=== PATIENT | female | born 2000 | race Caucasian/White ===

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

== ENCOUNTER 2022-06-09 15:40 | Emergency (ER) | payer OTHER ==
[2022-06-09] MEDS ORDERED: Ondansetron 4 MG Tab.DIS PO ONE (15:55)
== END 2022-06-09 17:54 | disposition home or self-care (01) ==
LOC: JD.ED 15:40
DX: T40.411A Poisoning by fentanyl or fentanyl analogs, accidental (unintentional), initial encounter (principal); Z72.0 Tobacco use
CPT/HCPCS: 99284; A9270

== ENCOUNTER 2022-08-29 19:25 | Emergency (ER) | payer OTHER ==
[2022-08-29] MEDS ORDERED: Diphtheria,Pertussis(Acell),Tetanus Vaccine 0.5 ML Syringe IM ONE (20:22)
[2022-08-29] MEDS ORDERED: Amoxicillin/Clavulanate K 875-125 MG Tab PO ONE (20:23)
== END 2022-08-29 20:58 | disposition home or self-care (01) ==
LOC: JD.ED 19:25
DX: S01.551A Open bite of lip, initial encounter (principal); Z79.899 Other long term (current) drug therapy; Z23 Encounter for immunization; W54.0XXA Bitten by dog, initial encounter
CPT/HCPCS: 90471; 90715; 99283; A9270; 12011

== ENCOUNTER 2025-05-22 07:30 | Day surgery (SDC) | payer MEDICAID ==
[~2025-05-22 07:30] MED LIST: Sodium Chloride 0.9% 10 ML Syringe FLUSH PRN; Sodium Chloride 0.9% 10 ML Syringe FLUSH SCH
[2025-05-22] MEDS ORDERED: propofoL 500 MG/50 ML 50 ML ONE (07:51)
[2025-05-22] MEDS ORDERED: Midazolam 1 MG/ML 2 ML SDV ONE (07:52)
[2025-05-22] MEDS ORDERED: fentaNYL 100 MCG/2 ML SDV ONE (07:52)
[2025-05-22] MEDS: Lactated Ringers 1,000 ML IV SCH (08:05)
[2025-05-22 08:11] LABS: BASOPHILS ABSOLUTE AUTO 0.1 K/mm3 (0.0-0.2); BASOPHILS PERCENT AUTO 1.1 % (0.0-1.0); EOSINOPHILS ABSOLUTE AUTO 0.1 K/mm3 (0.0-0.4); EOSINOPHILS PERCENT AUTO 1.8 % (0.0-6.0); IMMATURE GRAN ABSOLUTE AUTO 0.02 K/mm3 (0.00-0.05); IMMATURE GRAN PERCENT AUTO 0.4 % (0.0-0.4); LYMPHOCYTES ABSOLUTE AUTO 2.0 K/mm3 (1.0-4.8); LYMPHOCYTES PERCENT AUTO 35.5 % (24.0-44.0); MEAN PLATELET VOLUME 9.6 fl (9.4-12.3); MONOCYTES ABSOLUTE AUTO 0.4 K/mm3 (0.0-0.8); MONOCYTES PERCENT AUTO 7.0 % (0.0-8.0); NEUTROPHILS ABSOLUTE AUTO 3.0 K/mm3 (1.8-7.7); NEUTROPHILS PERCENT AUTO 54.2 % (41.0-71.0); NRBC ABSOLUTE 0.00 (0.00-0.02); NRBC PERCENT 0.0 % (0.0-0.2); PLATELET COUNT,PLT 196 K/mm3 (150-400); RED BLOOD CELL COUNT 4.06 M/mm3 (4.10-5.30); WHITE BLOOD CELL COUNT,WBC 5.55 K/mm3 (3.9-11.3)
[2025-05-22] MEDS ORDERED: Ondansetron 4 MG/2 ML SDV IVPUSH PRN (09:05)
[2025-05-22] MEDS: Ketorolac 30 MG/ML SDV IVPUSH PRN (09:40)
== END 2025-05-22 10:24 | disposition home or self-care (01) ==
LOC: JD.SDS 07:30
PROVIDERS: ATTEND Obstetrics & Gynecology
DX: O03.9 Complete or unspecified spontaneous abortion without complication (principal)
CPT/HCPCS: 36415; 59812; 85025; J1885; J2003; J2250; J2704; J3010; J7120; J7620; 00940; A9270-GY